=== PATIENT | male | born 1960 ===

== ENCOUNTER 2023-06-24 17:42 | Emergency (ER) | payer OTHER ==
[~2023-06-24] VITALS: Ht 170.2 cm; Wt 81.7 kg
[2023-06-24 18:17] LABS: Hemoglobin 16.7 g/dL (13.5-17.5); Mean Corpuscular HGB 31.3 pg (26.0-34.0); Mean Corpuscular HGB Conc 34.1 g/dL (31.5-36.5); Mean Corpuscular Volume 92 fL (80-100); Mean Platelet Volume 8.7 fL (9.1-12.4); Platelet Count 410 K/mm3 (150-400); RDW Coefficient Variation 12.7 % (11.7-14.2); RDW Standard Deviation 42.9 fL (35.1-46.3); Red Blood Cell Count 5.33 M/mm3 (4.30-5.90); White Blood Cell Count 14.33 K/mm3 (4.00-11.30)
[2023-06-24 18:28] LABS: Albumin, Blood 3.5 g/dL (3.4-5.0); Albumin/Globulin Ratio 0.8 (0.8-1.8); Bilirubin, Total 0.8 mg/dL (0.1-1.0); Bun/Creatinine Ratio 14.1 (12.0-20.0); Calcium, Blood 8.9 mg/dL (8.5-10.1); Creatinine, Blood 0.78 mg/dL (0.60-1.20); Globulin, Blood 4.5 g/dL (2.2-4.0); Potassium, Blood 3.8 mmol/L (3.5-5.5)
[2023-06-24 19:02] LABS: BAND PERCENT MAN 1 % (0-8); BASOPHILS ABSOLUTE MAN 0.14 K/mm3 (0.00-0.23); BASOPHILS PERCENT MAN 1 % (0-2); EOSINOPHILS PERCENT MAN 0 % (0-6); LYMPHOCYTES ABSOLUTE MAN 6.01 K/mm3 (0.84-5.20); LYMPHOCYTES PERCENT MAN 42 % (21-46); MONOCYTES ABSOLUTE MAN 0.57 K/mm3 (0.16-1.47); MONOCYTES PERCENT MAN 4 % (4-13); NEUTROPHILS ABSOLUTE MAN 7.59 K/mm3 (1.96-9.15); SEG NEUTROPHILS PERCENT MAN 52 % (41-73); TOTAL CELLS COUNTED 100
[2023-06-24 20:00] VITALS: BP 146/78
[2023-06-24] MEDS ORDERED: IBU800 M1 PO (20:33)
== END 2023-06-24 20:48 | disposition home or self-care (01) ==
LOC: ER 17:42
PROVIDERS: Physician Assistant
DX: R07.89 Other chest pain (principal)
CPT/HCPCS: 71046; 76705; 80053; 83690; 84484; 85025; 93005; 93010; 96374; 96375; 99285-25; A9270; J1885; J2405

== ENCOUNTER → 2023-07-26 | Outpatient (CLI) | payer OTHER ==
[~2023-07-26] MED LIST: IBU800 M1 PO
[2023-07-26 12:37] LABS: BASOPHILS ABSOLUTE AUTO 0.08 K/mm3 (0.00-0.23); BASOPHILS PERCENT AUTO 1 % (0-2); EOSINOPHILS ABSOLUTE AUTO 0.04 K/mm3 (0.00-0.68); EOSINOPHILS PERCENT AUTO 0 % (0-6); Hematocrit 39.2 % (37.0-53.0); Hemoglobin 13.5 g/dL (13.5-17.5); IMMATURE GRAN ABSOLUTE AUTO 0.07 K/mm3 (0.00-0.10); IMMATURE GRAN PERCENT AUTO 0 % (0-1); LYMPHOCYTES ABSOLUTE AUTO 3.91 K/mm3 (0.84-5.20); LYMPHOCYTES PERCENT AUTO 25 % (21-46); MONOCYTES ABSOLUTE AUTO 1.18 K/mm3 (0.16-1.47); MONOCYTES PERCENT AUTO 7 % (4-13); Mean Corpuscular HGB 30.5 pg (26.0-34.0); Mean Corpuscular HGB Conc 34.4 g/dL (31.5-36.5); Mean Corpuscular Volume 89 fL (80-100); Mean Platelet Volume 8.3 fL (9.1-12.4); NEUTROPHILS ABSOLUTE AUTO 10.56 K/mm3 (1.96-9.15); NEUTROPHILS PERCENT AUTO 67 % (41-73); Platelet Count 556 K/mm3 (150-400); RDW Coefficient Variation 12.6 % (11.7-14.2); Red Blood Cell Count 4.42 M/mm3 (4.30-5.90); White Blood Cell Count 15.84 K/mm3 (4.00-11.30)
[2023-07-26 12:50] LABS: Albumin/Globulin Ratio 0.3 (0.8-1.8); Bilirubin, Total 0.5 mg/dL (0.1-1.0); Calcium, Blood 8.7 mg/dL (8.5-10.1); Globulin, Blood 6.1 g/dL (2.2-4.0); Potassium, Blood 3.7 mmol/L (3.5-5.5); Total Protein, Blood 8.1 g/dL (6.4-8.2)
== END | disposition home or self-care (01) ==
LOC: LAB SHORT 12:34 → LAB 12:34
PROVIDERS: Physician Assistant
DX: R06.00 Dyspnea, unspecified (principal); R10.13 Epigastric pain
CPT/HCPCS: 80053; 83690; 84484; 85025

== ENCOUNTER 2025-03-06 06:41 | Day surgery (SDC) | payer OTHER ==
[2025-03-06] VITALS (17 sets, daily range): BP systolic 113–169; BP diastolic 68–110
[~2025-03-06] VITALS: Ht 167.6 cm; Wt 80.2 kg
[~2025-03-06 06:41] MED LIST changes: +Lactated Ringer's 1,000 ML IV SCH
[2025-03-06] MEDS ORDERED: propofoL 40 ML IV ONE (07:03)
--- NOTE | 2025-03-06 07:23 | NUR ---
History, Chart, Medications and Allergies reviewed before start of procedure. Pre-Op teaching done. Pt verbalizes understanding. Patient states colon prep results LIGHT YELLOW. Patient confirms NPO status and agrees with scheduled surgery.
--- NOTE | 2025-03-06 07:33 | NUR ---
03/06/25 0733 Matt Thomson CONFIRMED AND REVIEWED H&P, MEDCICATIONS, ALLERGIES, MEDICAL HISTORY, RESPIRATORY HISTORY, VITAL SIGNS, 3-LEAD EKG, CONSENTS, AND PHYSICIAN ORDERS. PATIENT CONFIRMS NPO STATUS AND AGREES WITH SCHEDULED PROCEDURE. MONITOR INTACT WITH CONTINUOUS PULSE OXIMETRY, CAPNOGRAPHY, 3-LEAD EKG, INTERMITTENT BP. SUPPLEMENTAL O2 TO BE TITRATED THROUGHOUT PROCEDURE TO MAINTAIN O2 SATURATION ABOVE 90%. PATIENT DETERMINED TO BE ASA APPROPRIATE FOR PROPOFOL SEDATION PRIOR TO START OF PROCEDURE BY DR. KUNZ.
--- NOTE | 2025-03-06 08:26 | NUR ---
DISCHARGE PT A&OX4, VSS/RA, SHARIF PO H20, DRESSED SELF, DC INS PROVIDED, PT REP UNDERSTANDING THOSE INSTRUCTIONS, IV DC'D, LEFT VIA WC WITH DC VOL TO GO HOME WITH [employer]ORY [employer]OR, COPY OF DC INS PROVIDED.
== END 2025-03-06 23:00 | disposition home or self-care (01) ==
LOC: ORSCMMR 06:41 → ORD 07:30 → ORSCMMR 07:30
PROVIDERS: Internal Medicine Gastroenterology
PROC: 0DBN8ZX Excision of Sigmoid Colon, Via Natural or Artificial Opening Endoscopic, Diagnostic (ICD-10-PCS; principal; 2025-03-06 07:30)
PROC: 0DBL8ZX Excision of Transverse Colon, Via Natural or Artificial Opening Endoscopic, Diagnostic (ICD-10-PCS; principal; 2025-03-06 07:30)
DX: Z12.11 Encounter for screening for malignant neoplasm of colon (principal); Z80.0 Family history of malignant neoplasm of digestive organs; D12.3 Benign neoplasm of transverse colon; K63.5 Polyp of colon; Z79.899 Other long term (current) drug therapy
CPT/HCPCS: 88305; J2704; J7120